=== PATIENT | male | born 1970 | race Caucasian/White ===

== ENCOUNTER 2022-05-10 14:29 | Outpatient (CLI) | payer OTHER | END 2022-05-10 14:40 | disposition home or self-care (01) | LOC: SONOGRAMA 14:29 | DX: R49.0 Dysphonia (principal); E03.8 Other specified hypothyroidism ==

== ENCOUNTER 2023-03-01 14:21 | Outpatient (CLI) | payer OTHER | END 2023-03-01 14:31 | disposition home or self-care (01) | LOC: SONOGRAMA 14:21 | DX: M75.22 Bicipital tendinitis, left shoulder (principal) ==